=== PATIENT | female | born 1990 | race Caucasian/White ===

== ENCOUNTER → 2023-04-18 | Outpatient (CLI) | payer BC ==
--- NOTE | 2023-04-18 18:16 | Diagnostic Imaging Report ---
INDICATION: Routine screening. COMPARISON: No prior mammograms are available for comparison. This is a baseline study. EXAMINATION: 2D and 3D bilateral screening mammography was performed with CAD. The current study was also evaluated with a Computer Aided Detection (CAD) system. FINDINGS: Both breasts are heterogeneously dense, limiting the sensitivity of mammography. No mass or malignant-appearing microcalcification is identified. Axillae are unremarkable. IMPRESSION: No mammographic features suspicious for malignancy are identified. ACR BI-RADS Category 1: Negative. Result letter will be mailed to the patient. Note: At least 10% of breast cancer is not imaged by mammography. Dictated by: Dictated on workstation # [id number]
== END ==
LOC: RAD 09:01
PROVIDERS: ATTEND Family Medicine
DX: Z12.31 Encounter for screening mammogram for malignant neoplasm of breast (principal); Z80.3 Family history of malignant neoplasm of breast
CPT/HCPCS: 77063; 77067

== ENCOUNTER 2023-10-13 17:33 | Emergency (ER) | payer BC ==
[~2023-10-13] VITALS: Ht 167.7 cm; Wt 111.1 kg
[2023-10-13] MEDS ORDERED: NS IV 1000 ML 1,000 ML IV STA ×2 (17:48→19:07)
--- NOTE | 2023-10-13 17:48 | ED GI ---
General Stated Complaint: VOMITING Source of Information: Patient Exam Limitations: No Limitations History of Present Illness Date Seen by Provider: Oct 13, 2023 Time Seen by Provider: 17:50 Initial Comments Patient is a 33-year-old female who presents the ED for vomiting. Vomiting over the past 4 days. She states she had around 6-8 episodes of vomiting today without any blood or mucus. 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 She is not have any specific abdominal pain. She started having a fever 4 days ago but that has improved. She is currently on clindamycin since Friday for a dental abscess. She reports some nasal congestion. She denies any pain with urination frequent urination, chest pain, shortness of breath, headache or dizziness. She is having difficulty eating due to the vomiting. Allergies and Home Medications Allergies Coded Allergies: No Known Drug Allergies (Unverified , 10/13/23) Patient Home Medication List Home Medication List Reviewed: Yes Ondansetron (Ondansetron Odt) 4 Mg Tab.rapdis, 4 MG SL Q4H PRN for NAUSEA/VOMITING Prescribed by: IGGY FRANKS on 10/13/231953 Review of Systems Review of Systems Constitutional: No chills, No diaphoresis; fever; No malaise, No weakness EENTM: No Double Vision, No Eye Pain Respiratory: Denies Cough, Denies Orthopnea Cardiovascular: Denies Chest Pain Gastrointestinal: Denies Abdominal Pain; Diarrhea, Nausea, Vomiting Genitourinary: Denies Burning, Denies Discharge, Denies Drainage, Denies Frequency Musculoskeletal: No back pain, No joint pain Skin: No change in color, No change in hair/nails All Other Systems Reviewed Negative Unless Noted: Yes Physical Exam Vital Signs Vital Signs - First Documented 10/13/23 17:38 Temp 36.3 Pulse 93 Resp 16 B/P (MAP) 134/98 (110) Pulse Ox 97 O2 Delivery Room Air Capillary Refill : Height/Weight/BMI Height: '" Weight: lbs. oz. kg; BMI Method: General Appearance: WD/WN, no apparent distress HEENT: PERRL/EOMI, normal ENT inspection, TMs normal, pharynx normal Neck: non-tender, full range of motion Respiratory: chest non-tender, lungs clear, normal breath sounds, no respiratory distress, no accessory muscle use Cardiovascular: regular rate, rhythm, no edema, no gallop, no JVD Gastrointestinal: normal bowel sounds, non tender, soft, no organomegaly Extremities: normal range of motion, non-tender, normal inspection, no pedal edema Back: normal inspection, no CVA tenderness Neurologic/Psychiatric: top and seat cover fitter II-XII nml as tested, no motor/sensory deficits, alert, normal mood/affect, oriented x 3 Skin: normal color, warm/dry Progress/Results/Core Measures Results/Orders Lab Results Laboratory Tests Test 10/13/23 17:45 10/13/23 18:25 Range/Units White Blood Count 7.4 4.3-11.0 10^3/uL Red Blood Count 4.99 3.80-5.11 10^6/uL Hemoglobin 14.4 11.5-16.0 g/dL Hematocrit 44 35-52 % Mean Corpuscular Volume 88 80-99 fL Mean Corpuscular Hemoglobin 29 25-34 pg Mean Corpuscular Hemoglobin Concent 33 32-36 g/dL Red Cell Distribution Width 13.8 10.0-14.5 % Platelet Count 197 130-400 10^3/uL Mean Platelet Volume 12.2 9.0-12.2 fL Immature Granulocyte % (Auto) 0 % Neutrophils (%) (Auto) 68 42-75 % Lymphocytes (%) (Auto) 22 12-44 % Monocytes (%) (Auto) 8 0-12 % Eosinophils (%) (Auto) 2 0-10 % Basophils (%) (Auto) 1 0-10 % Neutrophils # (Auto) 5.0 1.8-7.8 10^3/uL Lymphocytes # (Auto) 1.6 1.0-4.0 10^3/uL Monocytes # (Auto) 0.6 0.0-1.0 10^3/uL Eosinophils # (Auto) 0.2 0.0-0.3 10^3/uL Basophils # (Auto) 0.1 0.0-0.1 10^3/uL Immature Granulocyte # (Auto) 0.0 0.0-0.1 10^3/uL Sodium Level 138 135-145 MMOL/L Potassium Level 3.7 3.6-5.0 MMOL/L Chloride Level 104 98-107 MMOL/L Carbon Dioxide Level 20 L 21-32 MMOL/L Anion Gap 14 5-14 MMOL/L Blood Urea Nitrogen 3 L 7-18 MG/DL Creatinine 0.66 0.60-1.30 MG/DL Estimat Glomerular Filtration Rate 120 BUN/Creatinine Ratio 5 Glucose Level 67 L 70-105 MG/DL Calcium Level 9.1 8.5-10.1 MG/DL Corrected Calcium 8.9 8.5-10.1 MG/DL Total Bilirubin 0.6 0.1-1.0 MG/DL Aspartate Amino Transf (AST/SGOT) 52 H 5-34 U/L Alanine Aminotransferase (ALT/SGPT) 66 H 0-55 U/L Alkaline Phosphatase 77 40-136 U/L Total Protein 7.7 6.4-8.2 GM/DL Albumin 4.3 3.2-4.5 GM/DL Lipase 48 8-78 U/L Influenza Type A (RT-PCR) Not Detected Not Detecte Influenza Type B (RT-PCR) Not Detected Not Detecte SARS-CoV-2 RNA (RT-PCR) Not Detected Not Detecte Urine Color YELLOW Urine Clarity CLEAR Urine pH 5.5 5-9 Urine Specific [place] >=1.030 1.016-1.022 Urine Protein 2+ H NEGATIVE Urine Glucose (UA) NEGATIVE NEGATIVE Urine Ketones 4+ H NEGATIVE Urine Nitrite NEGATIVE NEGATIVE Urine Bilirubin 1+ H NEGATIVE Urine Urobilinogen 0.2 < = 1.0 MG/DL Urine Leukocyte Esterase NEGATIVE NEGATIVE Urine RBC (Auto) TRACE H NEGATIVE Urine RBC RARE /HPF Urine WBC RARE /HPF Urine Squamous Epithelial Cells 2-5 /HPF Urine Crystals NONE /LPF Urine Bacteria NEGATIVE /HPF Urine Casts NONE /LPF Urine Mucus NEGATIVE /LPF Urine Culture Indicated NO Urine Test NEGATIVE NEGATIVE My Orders Orders - SUSAN RODARTE PA Ua Culture If Indicated (10/13/23 17:35) Hcg,Qualitative Urine (10/13/23 17:35) Cbc And Automated Diff (10/13/23 17:48) Comprehensive Metabolic Panel (10/13/23 17:48) Lipase (10/13/23 17:48) Covid 19 Inhouse Test (10/13/23 17:48) Influenza A And B By Pcr (10/13/23 17:48) Ns Iv 1000 Ml (Ns Iv 1000 Ml) (10/13/23 17:48) Ct Abdomen/Pelvis W (10/13/23 17:48) Ondansetron Injection (Ondansetron Inj (10/13/23 18:00) Iohexol Injection (Omnipaque 350 Mg/Ml 1 (10/13/23 18:30) Ns (Ivpb) 100 Ml (Sodium Chloride 0.9% 1 (10/13/23 18:30) Ns Iv 1000 Ml (Ns Iv 1000 Ml) (10/13/23 19:07) Medications Given in ED Current Medications Medications Dose Ordered Sig/Nemo Route Start Time Stop Time Status Last Admin Dose Admin Iohexol 100 ml ONCE ONCE IV 10/13/23 18:30 10/13/23 18:32 DC 10/13/23 19:00 80 ML Ondansetron HCl 4 mg ONCE ONCE IVP 10/13/23 18:00 10/13/23 18:01 DC 10/13/23 18:07 4 MG Sodium Chloride 100 ml ONCE ONCE IV 10/13/23 18:30 10/13/23 18:32 DC 10/13/23 19:00 80 ML Vital Signs/I&O 10/13/23 10/13/23 17:38 20:01 Temp 36.3 36.3 Pulse 93 67 Resp 16 16 B/P (MAP) 134/98 (110) 117/70 Pulse Ox 97 99 O2 Delivery Room Air Room Air Departure Communication (PCP) Patient is a 33-year-old who presents to the ED for vomiting. Patient had a duodenal switch on September 10 at [facility]. She has been experiencing diarrhea but started developing vomiting 4 days ago. She is having no specific abd pain. Did have a fever on Friday. Denies chest pain, cough or flulike symptoms. Currently on clindamycin for dental infection started on Friday but has been experiencing vomiting before the clindamycin. Vital signs stable. No specific abdominal tenderness. She is afebrile. CBC, CMP, lipase, urinalysis was ordered. Urinalysis negative for infection. Positive for protein, ketones but negative for . She is concerned she may be dehydrated. CBC showed normal white blood count, hemoglobin. Liver enzymes AST 52, ALT 66. Patient was started on a liter of fluid. Patient was given IV Zofran. Patient is currently on Prilosec but has not been able to take over the past 2 days. Rule out postsurgical complication CT abdomen pelvis was ordered. CT abdomen pelvis shows cholelithiasis without findings of pericholecystic fluid or biliary dilation. No evidence of bowel obstruction or focal inflammation. No findings of free fluid free air or abscess or adenopathy. Nonspecific findings. Patient was able to tolerate p.o. fluids. COVID influenza was negative. Since patient is not having any upper gastric pain not concern for biliary colic versus ulcer. Outpatient follow-up for the cholelithiasis. I do recommend continue with the Prilosec. Vomiting could be viral versus food intolerance eating too fast, over eating, dumping syndrome. Patient states she is feeling much better and was tolerating p.o. fluids. She would like to be discharged. Will discharge with Zofran. Continue with clear liquids for the next 2 or 3 days and then work back up into soft food diet. Recommend smaller feedings. Suggest follow-up with your GI specialist for further evaluation. If any worsening symptoms return back to ED Impression Primary Impression: Vomiting Disposition: 01 HOME, SELF-CARE Condition: Stable Departure-Patient Inst. Decision time for Depature: 19:52 Referrals: EDER DEMPSEY JACQUELINE S DO (PCP/Family) Primary Care Physician Patient Instructions: Nausea and Vomiting, Adult (DC) Add. Discharge Instructions: Clear liquids for the next 2 or 3 days increase to soft foods. Nausea medication as needed. If any worsening symptoms return back to ED. If developing fever abdominal pain to return back to ED. Scripts Ondansetron (Ondansetron Odt) 4 Mg Tab.rapdis 4 MG SL Q4H PRN for NAUSEA/VOMITING, #8 TAB Prov: SUSAN RODARTE 10/13/23 SUSAN RODARTE Oct 13, 2023 17:48
[2023-10-13 17:56] LABS: BASOPHILS # (AUTO) 0.1 10^3/uL (0.0-0.1); BASOPHILS % (AUTO) 1 % (0-10); EOSINOPHILS # (AUTO) 0.2 10^3/uL (0.0-0.3); EOSINOPHILS % (AUTO) 2 % (0-10); HEMATOCRIT 44 % (35-52); HEMOGLOBIN 14.4 g/dL (11.5-16.0); LYMPHOCYTES # (AUTO) 1.6 10^3/uL (1.0-4.0); LYMPHOCYTES % (AUTO) 22 % (12-44); MEAN CORPUSCULAR HEMOGLOBIN 29 pg (25-34); MEAN CORPUSCULAR HGB CONC 33 g/dL (32-36); MEAN CORPUSCULAR VOLUME 88 fL (80-99); MEAN PLATELET VOLUME 12.2 fL (9.0-12.2); MONOCYTES # (AUTO) 0.6 10^3/uL (0.0-1.0); MONOCYTES % (AUTO) 8 % (0-12); NEUTROPHILS % (AUTO) 68 % (42-75); PLATELET COUNT 197 10^3/uL (130-400); WHITE BLOOD COUNT 7.4 10^3/uL (4.3-11.0)
[2023-10-13] MEDS ORDERED: ONDANSETRON INJECTION 4 MG/2 ML (SDV) IVP ONE (18:00)
[2023-10-13 18:09] LABS: ALBUMIN 4.3 GM/DL (3.2-4.5); POTASSIUM 3.7 MMOL/L (3.6-5.0)
[2023-10-13 18:11] LABS: CALCIUM 9.1 MG/DL (8.5-10.1)
[2023-10-13 18:12] LABS: TOTAL PROTEIN 7.7 GM/DL (6.4-8.2)
[2023-10-13 18:14] LABS: BILIRUBIN,TOTAL 0.6 MG/DL (0.1-1.0)
[2023-10-13 18:16] LABS: CREATININE SERUM 0.66 MG/DL (0.60-1.30)
[2023-10-13] MEDS ORDERED: NS 100 ML (IVPB) BAG IV ONE (18:30)
[2023-10-13] MEDS ORDERED: IOHEXOL 350 MG/ML 100 ML (OMNIPAQUE 350) VIAL IV ONE (18:30)
[2023-10-13 18:45] LABS: BACTERIA,URINE NEGATIVE /HPF; BILIRUBIN,URINE 1+ (NEGATIVE); CLARITY,URINE CLEAR; COLOR,URINE YELLOW; GLUCOSE, URINE (UA) NEGATIVE (NEGATIVE); KETONES,URINE 4+ (NEGATIVE); LEUKOCYTE ESTERASE ,URINE NEGATIVE (NEGATIVE); NITRITE,URINE NEGATIVE (NEGATIVE); PH,URINE 5.5 (5-9); PROTEIN,URINE 2+ (NEGATIVE); RBC,URINE RARE /HPF; WBC,URINE RARE /HPF
--- NOTE | 2023-10-13 19:13 | Diagnostic Imaging Report ---
PROCEDURE: CT abdomen and pelvis with contrast. TECHNIQUE: Multiple contiguous axial images were obtained through the abdomen and pelvis after administration of intravenous contrast. Auto Exposure Controls were utilized during the CT exam to meet ALARA standards for radiation dose reduction. All CT scans use one or more of the following dose optimizing techniques: automated exposure control, MA and/or KvP adjustment based on patient size and exam type or iterative reconstruction. INDICATION: Upper abdominal pain. No comparison is available FINDINGS: There is minimal atelectasis within the right middle lobe. There are no findings of pneumonia or edema. There is no pleural or pericardial fluid. There is focal fatty infiltration along the falciform ligament. The liver is otherwise normal. There are numerous gallstones within the gallbladder without definitive evidence of gallbladder wall thickening or pericholecystic fluid. There are no findings of biliary dilatation. The hepatic and portal veins are patent. The pancreas is normal. The spleen is unremarkable. There is no adrenal mass. The kidneys are nonobstructed. There is a right renal cyst. There are operative changes of gastric bypass. There is no adjacent fluid present to suggest an anastomotic leak. There is no abnormal bowel dilatation or findings to suggest bowel obstruction. There is no focal abnormal bowel thickening. There are no focal inflammatory changes evident within the omentum or mesentery. The bladder is unremarkable. The uterus and ovaries are normal. There is no pelvic free fluid. There are no abnormally enlarged abdominal or pelvic lymph nodes. The aorta is normal. There is no acute osseous abnormality. IMPRESSION: 1. Cholelithiasis without findings of pericholecystic fluid or biliary dilatation. 2. Operative changes of gastric bypass without findings of bowel obstruction or focal inflammation. 3. No findings of free fluid, free air, abscess or adenopathy. Dictated by: Dictated on workstation # [id number]
[2023-10-13] MEDS ORDERED: ONDA4TAB11 SL (19:54)
[2023-10-13 20:01] VITALS: BP 117/70
== END 2023-10-13 20:01 | disposition home or self-care (01) ==
LOC: EDUNIT# 17:33 → ER 17:35
DX: K80.20 Calculus of gallbladder without cholecystitis without obstruction (principal); K04.7 Periapical abscess without sinus
CPT/HCPCS: 36415; 74177; 80053; 81000; 83690; 84703; 85025; 87636

== ENCOUNTER 2023-10-15 22:46 | Emergency (ER) | payer BC ==
[~2023-10-15] VITALS: Ht 167.7 cm; Wt 108.8 kg
[~2023-10-15 22:46] MED LIST: ONDA4TAB11 SL
[2023-10-15] MEDS ORDERED: ONDANSETRON INJECTION 4 MG/2 ML (SDV) IVP ONE (23:15)
[2023-10-15] MEDS ORDERED: PANTOPRAZOLE INJECTION 40 MG VIAL IV ONE (23:15)
[2023-10-15] MEDS ORDERED: LACTATED RINGERS 1,000 ML 1,000 ML IV ONE (23:15)
[2023-10-15 23:16] LABS: BASOPHILS # (AUTO) 0.1 10^3/uL (0.0-0.1); BASOPHILS % (AUTO) 1 % (0-10); EOSINOPHILS % (AUTO) 1 % (0-10); HEMATOCRIT 46 % (35-52); HEMOGLOBIN 14.9 g/dL (11.5-16.0); LYMPHOCYTES # (AUTO) 0.9 10^3/uL (1.0-4.0); LYMPHOCYTES % (AUTO) 13 % (12-44); MEAN CORPUSCULAR HEMOGLOBIN 29 pg (25-34); MEAN CORPUSCULAR HGB CONC 33 g/dL (32-36); MEAN CORPUSCULAR VOLUME 88 fL (80-99); MEAN PLATELET VOLUME 12.5 fL (9.0-12.2); MONOCYTES # (AUTO) 0.6 10^3/uL (0.0-1.0); MONOCYTES % (AUTO) 8 % (0-12); NEUTROPHILS # (AUTO) 5.4 10^3/uL (1.8-7.8); NEUTROPHILS % (AUTO) 78 % (42-75); PLATELET COUNT 205 10^3/uL (130-400); WHITE BLOOD COUNT 6.9 10^3/uL (4.3-11.0)
--- NOTE | 2023-10-15 23:18 | ED GI ---
General Stated Complaint: VOMITING Source of Information: Patient, Old Records History of Present Illness Date Seen by Provider: Oct 15, 2023 Time Seen by Provider: 23:05 Initial Comments PT ARRIVES VIA POV FROM HOME PT C/O NAUSEA/VOMITING AND DIARRHEA SINCE LAST Friday10/10/23 STATES SHE HAS VOMITED "OVER 20 TIMES TODAY"--"STOMACH ACID" --STATES SHE KEEPS DRINKING WATER AND GATORADE AND IT COMES RIGHT BACK UP. NO HEMATEMESIS OR COFFEE-GROUND EMESIS SHE HAS HAD DIARRHEA X 3-4 TODAY, NO BLACK/BLOODY/TARRY STOOLS. LATER STATES SHE HAS HAD DIARRHEA/LOOSE STOOLS SINCE HER SURGERY 09/10/23. NO ABDOMINAL PAIN AT ANY TIME DECREASED URINE OUTPUT TODAY--VOIDED X 3 TODAY NO FEVER PT SEEN HERE 10/13/[address] AND [address] SCAN WERE DONE. CT SHOWED CHOLELITH IASIS, OTHERWISE NO ACUTE PROCESS. PT WAS GIVEN RX FOR ZOFRAN SHE TOOK 1 EARLIER TODAY, BUT STATES IT DIDN'T STAY DOWN PT HAD GASTRIC BYPASS / DUODENAL SWITCH ON 09/10/23 IN [facility] SHE HAD POST OP APPOINTMENT 09/24/23 SHE HAS NOT ATTEMPTED TO FOLLOW UP WITH HER SURGEON SINCE THESE SYMPTOMS BEGAN LAST FRIDAY (TODAY IS FRIDAY NIGHT BEFORE ) STATES SHE HAS ANOTHER POST OP APPOINTMENT 10/22/23 SHE HAS NOT ATTEMPTED TO CONTACT HER PCP AT ANY TIME FOR THESE SYMPTOMS PT STATES SHE IS SUPPOSED TO BE ON PRILOSEC BUT HAS NOT BEEN TAKING IT DUE TO NAUSEA/VOMITING SHE HAS BEEN ON PENICILLIN FOR DENTAL ABSCESS. SHE DENIES ANY OTHER MEDICAL PROBLEMS, NO OTHER ABDOMINAL SURGERIES OR GI PROBLEMS AND NO OTHER ROUTINE DAILY MEDICATIONS OTHER THAN PRILOSEC PCP: DR. CACERES Allergies and Home Medications Allergies Coded Allergies: No Known Drug Allergies (Unverified , 10/13/23) Patient Home Medication List Home Medication List Reviewed: Yes Ondansetron (Ondansetron Odt) 4 Mg Tab.rapdis, 4 MG SL Q4H PRN for NAUSEA/V OMITING Prescribed by: IGGY FRANKS on 10/13/231953 Ondansetron (Ondansetron Odt) 8 Mg Tab.rapdis, 8 MG PO Q6H Prescribed by: JARVIS BARR on 10/16/23105 Promethazine HCl (Promethazine Suppository) 25 Mg Supp.rect, 25 MG RC Q6 Prescribed by: JARVIS BARR on 10/16/23 0106 Review of Systems Review of Systems Constitutional: no symptoms reported EENTM: No Symptoms Reported Respiratory: No Symptoms Reported Cardiovascular: No Symptoms Reported Gastrointestinal: See HPI; Denies Abdominal Pain; Diarrhea, Nausea, Poor Fluid Intake, Vomiting Genitourinary: See HPI Musculoskeletal: no symptoms reported Skin: no symptoms reported Psychiatric/Neurological: No Symptoms Reported Endocrine: No Symptoms Reported Hematologic/Lymphatic: No Symptoms Reported Past [id number] Hx Patient Social History Tobacco Use?: No Use of E-Cig and/or Vaping dev: No Substance use?: No Alcohol Use?: No Past Medical History Surgeries: Yes (GASTRIC BYPASS/DUODENAL SWITCH 09/10/23 IN [facility]. ) Abdominal, Tonsillectomy Respiratory: No Cardiac: No Neurological: No : No Reproductive Disorders: No Genitourinary: No Gastrointestinal: Yes (GASTRIC BYPASS/DUODENAL SWITCH 09/10/23 [facility]) Musculoskeletal: No Endocrine: Yes (OBESITY) HEENT: No Cancer: No Psychosocial: No Integumentary: No Blood Disorders: No Physical Exam Vital Signs Capillary Refill : Height/Weight/BMI Height: '" Weight: lbs. oz. kg; 39.00 BMI Method: General Appearance: WD/WN, no apparent distress, obese, other (PT DOES NOT APPEAR TO BE ILL OR TO BE IN ANY DISCOMFORT OR DISTRESS) HEENT: PERRL/EOMI Neck: normal inspection Respiratory: normal breath sounds, no respiratory distress, no accessory muscle use Cardiovascular: regular rate, rhythm, no murmur Gastrointestinal: normal bowel sounds, non tender, soft Back: normal inspection, no CVA tenderness Neurologic/Psychiatric: assurance senior manager insurance II-XII nml as tested, no motor/sensory deficits, alert, normal mood/affect, oriented x 3 Skin: normal color, warm/dry Progress/Results/Core Measures Results/Orders Lab Results Laboratory Tests Test 10/15/23 23:11 10/16/23 00:32 Range/Units White Blood Count 6.9 4.3-11.0 10^3/uL Red Blood Count 5.15 H 3.80-5.11 10^6/uL Hemoglobin 14.9 11.5-16.0 g/dL Hematocrit 46 35-52 % Mean Corpuscular Volume 88 80-99 fL Mean Corpuscular Hemoglobin 29 25-34 pg Mean Corpuscular Hemoglobin Concent 33 32-36 g/dL Red Cell Distribution Width 14.1 10.0-14.5 % Platelet Count 205 130-400 10^3/uL Mean Platelet Volume 12.5 H 9.0-12.2 fL Immature Granulocyte % (Auto) 0 % Neutrophils (%) (Auto) 78 H 42-75 % Lymphocytes (%) (Auto) 13 12-44 % Monocytes (%) (Auto) 8 0-12 % Eosinophils (%) (Auto) 1 0-10 % Basophils (%) (Auto) 1 0-10 % Neutrophils # (Auto) 5.4 1.8-7.8 10^3/uL Lymphocytes # (Auto) 0.9 L 1.0-4.0 10^3/uL Monocytes # (Auto) 0.6 0.0-1.0 10^3/uL Eosinophils # (Auto) 0.0 0.0-0.3 10^3/uL Basophils # (Auto) 0.1 0.0-0.1 10^3/uL Immature Granulocyte # (Auto) 0.0 0.0-0.1 10^3/uL Sodium Level 141 135-145 MMOL/L Potassium Level 3.9 3.6-5.0 MMOL/L Chloride Level 109 H 98-107 MMOL/L Carbon Dioxide Level 14 L 21-32 MMOL/L Anion Gap 18 H 5-14 MMOL/L Blood Urea Nitrogen 3 L 7-18 MG/DL Creatinine 0.73 0.60-1.30 MG/DL Estimat Glomerular Filtration Rate 113 BUN/Creatinine Ratio 4 Glucose Level 78 70-105 MG/DL Calcium Level 9.5 8.5-10.1 MG/DL Corrected Calcium 9.1 8.5-10.1 MG/DL Magnesium Level 2.1 1.6-2.4 MG/DL Total Bilirubin 0.6 0.1-1.0 MG/DL Aspartate Amino Transf (AST/SGOT) 50 H 5-34 U/L Alanine Aminotransferase (ALT/SGPT) 73 H 0-55 U/L Alkaline Phosphatase 76 40-136 U/L Total Protein 8.2 6.4-8.2 GM/DL Albumin 4.5 3.2-4.5 GM/DL Amylase Level 31 25-125 U/L Lipase 54 8-78 U/L Serum Test, Qualitative NEGATIVE NEGATIVE Serum Alcohol < 10 <10 MG/DL Urine Color YELLOW Urine Clarity SL CLOUDY Urine pH 6.0 5-9 Urine Specific [place] >=1.030 1.016-1.022 Urine Protein 2+ H NEGATIVE Urine Glucose (UA) NEGATIVE NEGATIVE Urine Ketones 4+ H NEGATIVE Urine Nitrite NEGATIVE NEGATIVE Urine Bilirubin 1+ H NEGATIVE Urine Urobilinogen 0.2 < = 1.0 MG/DL Urine Leukocyte Esterase NEGATIVE NEGATIVE Urine RBC (Auto) TRACE-L H NEGATIVE Urine RBC NONE /HPF Urine WBC 2-5 /HPF Urine Squamous Epithelial Cells 5-10 /HPF Urine Crystals NONE /LPF Urine Bacteria FEW H /HPF Urine Casts PRESENT /LPF Urine Hyaline Casts 2-5 H /LPF Urine Mucus MODERATE H /LPF Urine Culture Indicated YES Urine Opiates Screen NEGATIVE NEGATIVE Urine Oxycodone Screen NEGATIVE NEGATIVE Urine Methadone Screen NEGATIVE NEGATIVE Urine Barbiturates Screen NEGATIVE NEGATIVE Ur Tricyclic Antidepressants Screen NEGATIVE NEGATIVE Urine Phencyclidine Screen NEGATIVE NEGATIVE Urine Amphetamines Screen NEGATIVE NEGATIVE Urine Methamphetamines Screen NEGATIVE NEGATIVE Urine Benzodiazepines Screen NEGATIVE NEGATIVE Urine Cocaine Screen NEGATIVE NEGATIVE Urine Cannabinoids Screen NEGATIVE NEGATIVE My Orders Orders - JARVIS BARR DO Ed Iv/Invasive Line Start (10/15/23 23:04) Monitor-Rhythm Ecg Trace Only (10/15/23 23:04) Alcohol (10/15/23 23:04) Amylase (10/15/23 23:04) Cbc And Automated Diff (10/15/23 23:04) Comprehensive Metabolic Panel (10/15/23 23:04) Drug Screen Stat (Urine) (10/15/23 23:04) Hcg,Qualitative Serum (10/15/23 23:04) Lipase (10/15/23 23:04) Magnesium (10/15/23 23:04) Ua Culture If Indicated (10/15/23 23:04) Ed Iv/Invasive Line Start (10/15/23 23:04) Lactated Ringers 1,000 Ml (Lactated Ring (10/15/23 23:15) Ondansetron Injection (Ondansetron Inj (10/15/23 23:15) Pantoprazole Injection (Pantoprazole Inj (10/15/23 23:15) Acute Abd Series (10/15/23 23:04) Ondansetron Injection (Ondansetron Inj (10/16/23 00:45) Urine Culture (10/16/23 00:32) Rx-Promethazine Hcl (Rx-Phenergan Supp) (10/16/23 00:56) Medications Given in ED Current Medications Medications Dose Ordered Sig/Nemo Route Start Time Stop Time Status Last Admin Dose Admin Lactated Ringer's 1,000 ml @ 0 mls/hr Q0M ONCE IV 10/15/23 23:15 10/15/23 23:16 DC 10/15/23 23:22 0 MLS/HR Ondansetron HCl 4 mg ONCE ONCE IVP 10/15/23 23:15 10/15/23 23:16 DC 10/15/23 23:22 4 MG Ondansetron HCl 4 mg ONCE ONCE IVP 10/16/23 00:45 10/16/23 00:46 DC 10/16/23 00:56 4 MG Pantoprazole 40 mg ONCE ONCE IV 10/15/23 23:15 10/15/23 23:16 DC 10/15/23 23:22 40 MG Progress Progress Note : Progress Note GIVEN: -IV FLUIDS -ZOFRAN -PROTONIX LABS: -CBC NORMAL -CMP WITH AST 50, ALT 73, OTHERWISE UNREMARKABLE -AMYLASE/LIPASE NEGATIVE -MG NORMAL -UA WITH 4+ KETONES, 1+ BILI, FEW BACTERIA -HCG NEGATIVE ABD XRAYS UNREMARKABLE, PENDING RADIOLOGIST REVIEW NO VOMITING OR DIARRHEA DURING ER STAY VITALS STABLE, AFEBRILE PT VOIDED DURING ER STAY PT TOLERATING ICE CHIPS PRIOR TO DISMISSAL REVIEWED TEST RESULTS, ANTICIPATED COURSE, MEDICATIONS, DIET, NEED FOR FOLLOW UP AND RETURN PRECAUTIONS REVIEWED PRIOR ER RECORD ( PT'S ONLY OTHER VISIT HERE) Diagnostic Imaging Comments ABDOMEN XRAYS--NO ACUTE PROCESS, PENDING RADIOLOGIST REVIEW Reviewed: Reviewed by Me Departure Impression Primary Impression: Nausea and vomiting Additional Impressions: Diarrhea S/P gastric bypass Disposition: HOME, SELF-CARE Condition: Improved Departure-Patient Inst. Decision time for Depature: 01:03 Referrals: ERICKA CACERES DO (PCP/Family) Primary Care Physician Patient Instructions: Nausea and Vomiting, Adult (DC) Add. Discharge Instructions: CLEAR LIQUIDS--WATER, BROTH, JELLO, GATORADE, POPSICLES WHEN YOUR NAUSEA IS BETTER AND YOU ARE KEEPING LIQUIDS DOWN, THEN ADD BRATS DIET TO CLEAR LIQUIDS--BANANAS, RICE, APPLESAUCE, TOAST, SALTINES CONTINUE ZOFRAN EVERY 4 HOURS NEEDED FOR NAUSEA KEEP YOUR APPOINTMENT WITH YOUR SURGEON NEXT WEEK RETURN TO ER IF YOUR SYMPTOMS WORSEN Scripts Ondansetron (Ondansetron Odt) 8 Mg Tab.rapdis 8 MG PO Q6H, #10 TAB Prov: JARVIS BARR DO 10/16/23 Promethazine HCl (Promethazine Suppository) 25 Mg Supp.rect 25 MG RC Q6 for Nausea/Vomiting, #10 SUPP.RECT Prov: JARVIS BARR DO 10/16/23 JARVIS BARR DO Oct 15, 2023 23:18
[2023-10-15 23:25] LABS: ALBUMIN 4.5 GM/DL (3.2-4.5); CHLORIDE 109 MMOL/L (98-107); POTASSIUM 3.9 MMOL/L (3.6-5.0); SODIUM 141 MMOL/L (135-145)
[2023-10-15 23:26] LABS: CALCIUM 9.5 MG/DL (8.5-10.1)
[2023-10-15 23:27] LABS: AMYLASE 31 U/L (25-125)
[2023-10-15 23:28] LABS: GLUCOSE 78 MG/DL (70-105); TOTAL PROTEIN 8.2 GM/DL (6.4-8.2)
[2023-10-15 23:29] LABS: CARBON DIOXIDE 14 MMOL/L (21-32)
[2023-10-15 23:30] LABS: BILIRUBIN,TOTAL 0.6 MG/DL (0.1-1.0)
[2023-10-15 23:31] LABS: ALKALINE PHOSPHATASE 76 U/L (40-136); CREATININE SERUM 0.73 MG/DL (0.60-1.30); GFR ESTIMATED 113
[2023-10-15 23:32] LABS: BUN/CREATININE RATIO 4
[2023-10-15 23:34] LABS: ALANINE AMINOTRANSFERASE 73 U/L (0-55); MAGNESIUM 2.1 MG/DL (1.6-2.4)
[2023-10-15 23:36] LABS: LIPASE 54 U/L (8-78)
[2023-10-16] MEDS ORDERED: ONDANSETRON INJECTION 4 MG/2 ML (SDV) IVP ONE (00:45)
[2023-10-16 00:50] LABS: CLARITY,URINE SL CLOUDY; COLOR,URINE YELLOW
[2023-10-16 00:51] LABS: GLUCOSE, URINE (UA) NEGATIVE (NEGATIVE); KETONES,URINE 4+ (NEGATIVE); LEUKOCYTE ESTERASE ,URINE NEGATIVE (NEGATIVE); NITRITE,URINE NEGATIVE (NEGATIVE); PROTEIN,URINE 2+ (NEGATIVE)
[2023-10-16 00:52] LABS: BACTERIA,URINE FEW /HPF
[2023-10-16 00:53] LABS: BILIRUBIN,URINE 1+ (NEGATIVE)
[2023-10-16] MEDS ORDERED: RX-PHENERGAN 25 MG SUPP PPK#3 PR STA (00:56)
[2023-10-16 00:58] LABS: AMPHETAMINE SCREEN, URINE NEGATIVE (NEGATIVE); BARBITURATE SCREEN URINE NEGATIVE (NEGATIVE); CANNABINOID SCREEN, URINE NEGATIVE (NEGATIVE); COCAINE SCREEN URINE NEGATIVE (NEGATIVE); METHADONE STAT NEGATIVE (NEGATIVE); OPIATE SCREEN URINE NEGATIVE (NEGATIVE); OXYCODONE STAT NEGATIVE (NEGATIVE); TRICYCLIC ANTIDEPRESSANTS SCRE NEGATIVE (NEGATIVE)
[2023-10-16] MEDS ORDERED: ONDA8TAB13 PO (01:06)
[2023-10-16] MEDS ORDERED: PROM25SU44 RC (01:06)
[2023-10-16 01:10] VITALS: BP 122/67
--- NOTE | 2023-10-16 07:54 | Diagnostic Imaging Report ---
CLINICAL INDICATIONS: Patient with vomiting and diarrhea. Patient has history of gastric bypass. EXAMS: X-ray of the chest PA view and x-ray of the abdomen supine and upright views. COMPARISONS: None. FINDINGS: LUNGS/ PLEURA: Lungs are clear. There is no pneumothorax. There is no pleural effusion. MEDIASTINUM: Unremarkable. PULMONARY VASCULATURE: Unremarkable. HEART: Unremarkable. BONES/ EXTRATHORACIC SOFT TISSUE: Unremarkable. ABDOMEN AND PELVIS: There is a nonobstructed bowel gas pattern. There is no evidence of abdominal free air. Surgical clips are seen overlying the right upper quadrant which could be related to cholecystectomy changes. There are surgical clips and sutures overlying the left upper quadrant of the region related to patient's history of gastric bypass. There are no focal calcifications overlying the expected regions/ pathways of both kidneys, ureters, and bladder regions. IMPRESSION: 1: There is no radiographic evidence of acute cardiopulmonary process. 2: There is no radiographic evidence of acute abdominal or pelvic process. There is no significant stool load. I agree with the Emergency Room clinician's preliminary impression. Dictated by: Dictated on workstation # [id number]
== END 2023-10-16 01:26 | disposition home or self-care (01) ==
LOC: EDUNIT# 22:46 → ER 22:50
DX: R11.2 Nausea with vomiting, unspecified (principal); R19.7 Diarrhea, unspecified; E66.9 Obesity, unspecified; Z68.39 Body mass index [BMI] 39.0-39.9, adult; Z98.84 Bariatric surgery status
CPT/HCPCS: 74022; 80053; 80306; 81000; 82150; 83690; 83735; 84703; 85025; 87088; 99284; G0480; 36415; 80320